=== PATIENT | female | born 1955 | race African-American/Black ===

== ENCOUNTER 2018-10-31 08:29 | Day surgery (SDC) | payer OTHER ==
[2018-10-30 09:48] VITALS: BMI 27.7
[~2018-10-31 08:29] MED LIST: ACETAMINOPHEN 325 MG TABLET (FP) PO PRN; TROPICAMIDE 1% OPHTH SOLN 15 ML BOTTLE OP SCH
[2018-10-31] MEDS ORDERED: CYCLOPENTOLATE HCL 1% OPHTH SOLN 2 ML BOTTLE ONE (08:58)
[2018-10-31] MEDS ORDERED: OFLOXACIN 0.3% OPHTHALMIC SOLUTION 5 ML BOTTLE ONE (08:58)
[2018-10-31] MEDS ORDERED: KETOROLAC TROMETHAMINE 0.5% EYE DROP 1 DROP DROPS ONE (08:58)
[2018-10-31] MEDS: PHENYLEPHRINE 2.5% OPHTH SOLN 15 ML BOTTLE OP SCH ×3 (09:10→09:20)
[2018-10-31] MEDS: TROPICAMIDE 0.5% OPHTHALMIC SOLN 15 ML BOTTLE OU SCH ×3 (09:10→09:20)
[2018-10-31] MEDS: CYCLOPENTOLATE HCL 1% OPHTH SOLN 2 ML BOTTLE OP SCH ×3 (09:10→09:20)
[2018-10-31] MEDS: KETOROLAC TROMETHAMINE 0.5% EYE DROP 1 DROP DROPS OP SCH ×3 (09:10→09:20)
[2018-10-31] MEDS: OFLOXACIN 0.3% OPHTHALMIC SOLUTION 5 ML BOTTLE OP SCH ×3 (09:10→09:20)
[2018-10-31] MEDS ORDERED: MIDAZOLAM HCL 2 MG/2 ML SINGLE DOSE VIAL ONE (11:04)
[2018-10-31] MEDS ORDERED: TETRACAINE 0.5% OPHTH SOLN 2 ML BOTTLE OS ONE (11:12)
[2018-10-31] MEDS ORDERED: POVIDONE-IODINE 5% OPHTHALMIC PREP 30 ML SOLUTION OS ONE (11:13)
[2018-10-31] MEDS ORDERED: BSS (NA/CA/MG/K) BALANCED SALT SOLUTION OPHTH SOLN 15 ML BOTTLE OS ONE (11:20)
[2018-10-31] MEDS ORDERED: TRYPAN BLUE 0.5 ML DISP.SYRIN IO ONE (11:20)
[2018-10-31] MEDS ORDERED: LIDOCAINE HCL 1% PRESERVATIVE FREE - 30ML VIAL IO ONE (11:20)
[2018-10-31] MEDS ORDERED: CHONDROITIN SU A/HYALUR SOD 1 KIT IO ONE (11:20)
[2018-10-31] MEDS ORDERED: EPINEPHrine/PF 1 MG/1 ML (1:1,000) AMPULE SQ ONE (11:30)
[2018-10-31] MEDS ORDERED: PROPOFOL 20 ML ONE (12:24)
[2018-10-31 12:36] VITALS: PULSE 67
--- NOTE | 2018-10-31 13:40 | SPEC ---
DATE OF OPERATION: DATE OF DICTATION: 10/31/2018 OPERATION: Phacoemulsification of left cataract with capsular staining with trypan blue and posterior chamber intraocular lens implantation. Lens used [id number], 20.5 diopter power, serial no. [id number]. PREOPERATIVE DIAGNOSIS: Cataract, left eye. ASSOCIATIVE DIAGNOSIS: POSTOPERATIVE DIAGNOSIS: Cataract, left eye. SURGEON: Aníbal Chun M.D. ANESTHESIA: Topical MAC. COMPLICATIONS: None. PROCEDURE: The patient was brought to the operating room and correctly identified along with the operative site as well as correct intraocular lens dailey. The patient was then prepped and draped in the usual sterile fashion including 5% Betadine solution in the conjunctival sac and an eyelid drape. An eyelid speculum was then placed into the operative eye. The eye was inspected and a poor red reflex was noted. A paracentesis port was created and 0.5 mL of intracameral preservative-free lidocaine 1% was given. Beneath an air bubble, the capsule was then stained with trypan blue. The trypan blue was then irrigated from the eye with balanced salt solution (BBS). Viscoelastic was injected to inflate the anterior chamber. A temporal clear corneal would was created. A continuous circular capsulorrhexis was performed. The nucleus was then hydro-dissected and hydro-delineated with BSS and removed with phacoemulsification via [id number] approach. The remaining cortical material was irrigated and aspirated from the eye. Viscoelastic was injected in the anterior chamber to inflate the capsular bag. The intraocular lens was then injected into the bag. The Viscoelastic was irrigated and aspirated from the eye. All wounds were tested and found to be watertight. No suture was placed. The intraocular lens was noted to be well centered and covered by the anterior capsular border. Topical vancomycin was given. The eye was patched and shielded. The patient was discharged from the operating room in stable condition. ANÍBAL CHUN M.D. [id number]
[2018-10-31 14:36] VITALS: TEMP 98
[2018-10-31 15:15] VITALS: BP 130/60
== END 2018-10-31 15:17 | disposition home or self-care (01) ==
LOC: JASU-SURG 08:29
PROVIDERS: ATTEND Ophthalmology
PROC: 08RK3JZ Replacement of Left Lens with Synthetic Substitute, Percutaneous Approach (ICD-10-PCS; principal; 2018-10-31 11:00)
DX: H26.9 Unspecified cataract (principal)
CPT/HCPCS: 82962

== ENCOUNTER 2018-12-26 07:48 | Day surgery (SDC) | payer OTHER ==
[2018-12-25 11:26] VITALS: BMI 27.7
[2018-12-26] MEDS ORDERED: ACETAMINOPHEN 325 MG TABLET (FP) PO PRN (07:52)
[2018-12-26] MEDS ORDERED: TROPICAMIDE 1% OPHTH SOLN 15 ML BOTTLE ONE (07:58)
[2018-12-26] MEDS: TROPICAMIDE 1% OPHTH SOLN 15 ML BOTTLE OP SCH ×3 (08:10→08:36)
[2018-12-26] MEDS: OFLOXACIN 0.3% OPHTHALMIC SOLUTION 5 ML BOTTLE OP SCH ×3 (08:10→08:35)
[2018-12-26] MEDS: PHENYLEPHRINE 2.5% OPHTH SOLN 15 ML BOTTLE OP SCH ×3 (08:10→08:35)
[2018-12-26] MEDS: KETOROLAC TROMETHAMINE 0.5% EYE DROP 1 DROP DROPS OP SCH ×3 (08:10→08:35)
[2018-12-26] MEDS: CYCLOPENTOLATE HCL 1% OPHTH SOLN 2 ML BOTTLE OP SCH ×3 (08:10→08:35)
[2018-12-26 08:15] VITALS: TEMP 98.3
[2018-12-26] MEDS ORDERED: MIDAZOLAM HCL 2 MG/2 ML SINGLE DOSE VIAL ONE (08:58)
[2018-12-26] MEDS ORDERED: TETRACAINE 0.5% OPHTH SOLN 2 ML BOTTLE OD ONE (09:02)
[2018-12-26] MEDS ORDERED: POVIDONE-IODINE 5% OPHTHALMIC PREP 30 ML SOLUTION OD ONE (09:03)
[2018-12-26] MEDS ORDERED: TRYPAN BLUE 0.5 ML DISP.SYRIN IO ONE (09:12)
[2018-12-26] MEDS ORDERED: LIDOCAINE HCL 1% PRESERVATIVE FREE - 30ML VIAL IO ONE (09:12)
[2018-12-26] MEDS ORDERED: BSS (NA/CA/MG/K) BALANCED SALT SOLUTION OPHTH SOLN 15 ML BOTTLE OD ONE (09:12)
[2018-12-26] MEDS ORDERED: CHONDROITIN SU A/HYALUR SOD 1 KIT IO ONE (09:12)
[2018-12-26] MEDS ORDERED: EPINEPHrine/PF 1 MG/1 ML (1:1,000) AMPULE SQ ONE (09:20)
--- NOTE | 2018-12-26 10:13 | SPEC ---
DATE OF OPERATION: DATE OF DICTATION: 12/26/2018 PREOPERATIVE DIAGNOSIS: Cataract, right eye. POSTOPERATIVE DIAGNOSIS: Cataract, right eye. OPERATION: Phacoemulsification of right cataract with capsular staining with Trypan blue and posterior chamber intraocular lens implantation, the lens used SN60WF, 20.0-diopter power, serial number [id number]. SURGEON: Aníbal Chun MD ANESTHESIA: Topical MAC. COMPLICATIONS: None. PROCEDURE: The patient was brought to the operating room and correctly identified along with the operative site as well as correct intraocular lens dailey. The patient was then prepped and draped in the usual sterile fashion including 5% Betadine solution in the conjunctival sac and an eyelid drape. An eyelid speculum was then placed into the operative eye. The eye was inspected and a poor red reflex was noted. A paracentesis port was created and 0.5 mL of intracameral preservative-free lidocaine 1% was given. Beneath an air bubble, the capsule was then stained with Trypan blue. The Trypan blue was then irrigated from the eye with balanced salt solution (BBS). Viscoelastic was injected to inflate the anterior chamber. A temporal clear corneal would was created. A continuous circular capsulorrhexis was performed. The nucleus was then hydrodissected and hydrodelineated with BSS and removed with phacoemulsification via [id number] approach. The remaining cortical material was irrigated and aspirated from the eye. Viscoelastic was injected in the anterior chamber to inflate the capsular bag. The intraocular lens was then injected into the bag. The Viscoelastic was irrigated and aspirated from the eye. All wounds were tested and found to be watertight. No suture was placed. The intraocular lens was noted to be well centered and covered by the anterior capsular border. Topical Vancomycin was given. The eye was patched and shielded. The patient was discharged from the operating room in stable condition. ANÍBAL CHUN M.D. [id number]
[2018-12-26 10:59] VITALS: BP 141/56; PULSE 75
== END 2018-12-26 10:45 | disposition home or self-care (01) ==
LOC: JASU-SURG 07:48
PROVIDERS: ATTEND Ophthalmology
PROC: 08RJ3JZ Replacement of Right Lens with Synthetic Substitute, Percutaneous Approach (ICD-10-PCS; principal; 2018-12-26 09:00)
DX: H26.9 Unspecified cataract (principal)
CPT/HCPCS: 82962